=== PATIENT | male | born 1960 | race Two or more races ===

== ENCOUNTER 2018-04-15 09:25 | Emergency (ER) | payer OTHER ==
[~2018-04-15] VITALS: Ht 180.3 cm; Wt 72.6 kg
[~2018-04-15 09:25] MED LIST: ORPH100T PO; ULTRAM50 MG PO
== END 2018-04-15 13:34 | disposition home or self-care (01) ==
LOC: ER 09:25
DX: N20.0 Calculus of kidney (principal); K57.90 Diverticulosis of intestine, part unspecified, without perforation or abscess without bleeding; R10.32 Left lower quadrant pain

== ENCOUNTER → 2023-07-03 | Emergency (ER) | payer OTHER ==
[~2023-07-03] VITALS: Ht 180.3 cm; Wt 72.6 kg
== END | disposition left against medical advice (07) ==
LOC: ER 11:58
DX: Z53.21 Procedure and treatment not carried out due to patient leaving prior to being seen by health care provider (principal)

== ENCOUNTER 2023-11-17 09:23 | Outpatient (CLI) | payer OTHER | END 2023-11-17 09:33 | disposition home or self-care (01) | LOC: SONOGRAMA 09:23 | PROVIDERS: ATTEND Internal Medicine Gastroenterology | DX: R10.9 Unspecified abdominal pain (principal) ==

== ENCOUNTER 2023-11-17 10:26 | Outpatient (CLI) | payer OTHER ==
[2023-11-17 11:54] LABS: HEMATOCRIT 46.1 % (39.0-48.0); HEMOGLOBIN 15.7 g/dL (13-16.00); MEAN CORPUSCULAR HGB CONC 34.1 g/dl (32.0-36.0); PLATELET COUNT 400 K/uL (150-450); RED BLOOD COUNT 5.07 M/uL (4.00-6.00); RED CELL DISTRIBUTION WIDTH 14.4 % (11.5-14.5)
[2023-11-17 12:33] LABS: ALBUMIN 3.7 gm/dL (3.4-5.0); BILIRUBIN TOTAL 0.52 mg/dL (0.3-1.2); CALCIUM 9.8 mg/dL (8.5-10.1); CHOL HDL RATIO 2.9 (0-5.0); CREATININE SERUM 0.91 mg/dL (0.70-1.30); GFR 84.15; GLOBULINA 3.4 G/DL (2.4-3.5); POTASSIUM 4.57 mEq/L (3.5-5.1); TOTAL PROTEIN 7.1 gm/dL (6.4-8.2); TSH 0.856 uIU/mL (0.358-3.74)
== END 2023-11-17 10:28 | disposition home or self-care (01) ==
LOC: LAB 10:26
PROVIDERS: ATTEND Internal Medicine Gastroenterology
DX: E78.5 Hyperlipidemia, unspecified (principal); E03.9 Hypothyroidism, unspecified; R10.9 Unspecified abdominal pain